=== PATIENT | female | born 1945 | race Caucasian/White ===

== ENCOUNTER 2021-11-28 07:17 | Day surgery (SDC) | payer OTHER ==
[2021-11-21 09:42] VITALS: BMI 32.1
[2021-11-28] MEDS ORDERED: TRANEXAMIC ACID 1000 MG/10 ML VIAL IVPUSH ONE (07:32)
[2021-11-28] MEDS ORDERED: CELECOXIB 200 MG CAPSULE PO ONE (07:32)
[2021-11-28] MEDS ORDERED: CEFAZOLIN 2 GM in DEXTROSE 5%-WATER - 50 ML IVPB ONE (07:32)
[2021-11-28] MEDS ORDERED: ceFAZolin SODIUM 1 GM VIAL ONE ×3 (07:54→23:57)
[2021-11-28] MEDS ORDERED: VANCOMYCIN 1,000 MG VIAL (RESTRICTED TO ID ONLY) ONE (07:54)
[2021-11-28] MEDS ORDERED: BUPIVACAINE LIPOSOME/PF (EXPAREL) 266 MG/20 ML VIAL ONE (09:00)
[2021-11-28] MEDS ORDERED: MIDAZOLAM HCL 2 MG/2 ML SINGLE DOSE VIAL ONE (09:01)
[2021-11-28] MEDS ORDERED: BUPIVACAINE HCL/PF 0.5% (5MG/ML) 10 ML VIAL ONE (09:01)
[2021-11-28] MEDS ORDERED: PROPOFOL 20 ML ONE (09:09)
[2021-11-28] MEDS ORDERED: SUCCINYLCHOLINE CHLORIDE 200 MG/10 ML SYRINGE ONE (09:10)
[2021-11-28] MEDS ORDERED: MAG HYDROX/AL HYDROX/SIMETH 30 ML UNIT-DOSE CUP PO PRN (09:48)
[2021-11-28] MEDS ORDERED: ONDANSETRON 4 MG/2 ML VIAL IVPUSH PRN ×2 (09:48→12:09)
[2021-11-28] MEDS ORDERED: LACTATED RINGERS SOLUTION 1,000 ML IV SCH (10:00)
[2021-11-28] MEDS ORDERED: ACETAMINOPHEN 1000 MG/100 ML BAG IVPB ONE (12:10)
[2021-11-28] MEDS: oxyCODONE HCL 5 MG TABLET PO PRN ×3 (16:07→22:33)
[2021-11-28] MEDS ORDERED: DEXTROSE 5%-WATER - 50 ML IVPB ONE ×2 (17:13→23:57)
[2021-11-28] MEDS: ACETAMINOPHEN 500 MG TABLET (FP) PO SCH ×2 (17:20→23:54)
[2021-11-28] MEDS: CEFAZOLIN 2 GM in DEXTROSE 5%-WATER - 50 ML IVPB SCH (17:21)
[2021-11-28] MEDS: LOSARTAN POTASSIUM 25 MG TABLET PO SCH (17:57)
[2021-11-28] MEDS ORDERED: KETOROLAC TROMETHAMINE 30 MG/1 ML VIAL IVPUSH ONE (18:54)
[2021-11-28] MEDS: PANTOPRAZOLE 40 MG TABLET PO SCH (21:01)
[2021-11-28] MEDS: LACTATED RINGERS SOLUTION 1,000 ML IV SCH (21:01)
[2021-11-28] MEDS: SENNOSIDES/DOCUSATE COMBO (SENNA PLUS) TABLET (UD) PO SCH ×2 (21:01→22:33)
[2021-11-28] MEDS: MULTIVITAMINS (DAILY MVI) TABLET (FP) PO SCH (21:01)
[2021-11-28] MEDS: ATORVASTATIN CA 40 MG TABLET (FP) PO SCH (22:33)
[2021-11-29] MEDS: CEFAZOLIN 2 GM in DEXTROSE 5%-WATER - 50 ML IVPB SCH (01:54)
[2021-11-29] MEDS: ACETAMINOPHEN 500 MG TABLET (FP) PO SCH ×4 (06:07→20:33)
[2021-11-29 07:33] LABS: HEMATOCRIT 36.6 % (32.4-45.2); HEMOGLOBIN 12.5 G/dL (10.7-15.3); MCH 30.3 pg (25.7-33.7); MCHC 34.2 g/dl (32.0-36.0); MEAN CELL VOLUME 88.5 fl (80-96); MEAN PLT VOLUME 10.4 fl (7.5-11.1); PLATELET COUNT 145.6 10^3/uL (134-434); RBC 4.13 10^6/uL (3.60-5.2); RDW 14.2 % (11.6-15.6); WHITE BLOOD COUNT 7.6 10^3/uL (4.0-10.8)
[2021-11-29] MEDS: LOSARTAN POTASSIUM 25 MG TABLET PO SCH (10:46)
[2021-11-29] MEDS: PANTOPRAZOLE 40 MG TABLET PO SCH (10:47)
[2021-11-29] MEDS: ASPIRIN 325 MG TABLET PO SCH (10:47)
[2021-11-29] MEDS: MULTIVITAMINS (DAILY MVI) TABLET (FP) PO SCH (10:47)
[2021-11-29] MEDS: SENNOSIDES/DOCUSATE COMBO (SENNA PLUS) TABLET (UD) PO SCH ×2 (10:51→21:05)
[2021-11-29] MEDS: oxyCODONE HCL 5 MG TABLET PO PRN ×2 (13:24→17:51)
[2021-11-29] MEDS: LACTATED RINGERS SOLUTION 1,000 ML IV SCH (18:52)
[2021-11-29] MEDS: ATORVASTATIN CA 40 MG TABLET (FP) PO SCH (21:04)
[2021-11-30] MEDS: ACETAMINOPHEN 500 MG TABLET (FP) PO SCH ×2 (01:57→06:32)
[2021-11-30] MEDS: oxyCODONE HCL 5 MG TABLET PO PRN (06:32)
[2021-11-30 08:27] LABS: HEMATOCRIT 33.1 % (32.4-45.2); HEMOGLOBIN 11.4 G/dL (10.7-15.3); MCH 30.8 pg (25.7-33.7); MCHC 34.6 g/dl (32.0-36.0); MEAN CELL VOLUME 89.1 fl (80-96); PLATELET COUNT 143.2 10^3/uL (134-434); RBC 3.72 10^6/uL (3.60-5.2); RDW 14.7 % (11.6-15.6)
[2021-11-30] MEDS: SENNOSIDES/DOCUSATE COMBO (SENNA PLUS) TABLET (UD) PO SCH (09:07)
[2021-11-30] MEDS: PANTOPRAZOLE 40 MG TABLET PO SCH (09:07)
[2021-11-30] MEDS: ASPIRIN 325 MG TABLET PO SCH (09:07)
[2021-11-30] MEDS: MULTIVITAMINS (DAILY MVI) TABLET (FP) PO SCH (09:07)
[2021-11-30] MEDS: LOSARTAN POTASSIUM 25 MG TABLET PO SCH (09:07)
[2021-11-30 13:53] VITALS: BP 120/50; PULSE 66; TEMP 98.4
== END 2021-11-30 15:57 | disposition home health service (06) ==
LOC: FASUSAT 07:17 → EDSTATUS 08:00 → FM/S 13:11 → FASUSAT 11-30 15:57
PROVIDERS: ATTEND Orthopaedic Surgery
PROC: 8E0YXBZ Computer Assisted Procedure of Lower Extremity (ICD-10-PCS; 2021-11-28)
PROC: 8E0Y0CZ Robotic Assisted Procedure of Lower Extremity, Open Approach (ICD-10-PCS; 2021-11-28)
PROC: 0SRC0J9 Replacement of Right Knee Joint with Synthetic Substitute, Cemented, Open Approach (ICD-10-PCS; principal; 2021-11-28 10:20)
DX: M17.11 Unilateral primary osteoarthritis, right knee (principal); I10 Essential (primary) hypertension; E78.5 Hyperlipidemia, unspecified
CPT/HCPCS: 20985; 27447; C1776; S2900; 36415; 73560-TC-RT-FY; 85027; 94760; 97010-GP; 97116-GP; 97161-GP

== ENCOUNTER 2022-02-20 10:38 | Day surgery (SDC) | payer OTHER ==
[2022-02-16 17:32] VITALS: BMI 30.6
[2022-02-20] MEDS ORDERED: LIDOCAINE HCL/PF 2% SDV 5ML VIAL ONE (11:35)
[2022-02-20] MEDS ORDERED: MIDAZOLAM HCL 2 MG/2 ML SINGLE DOSE VIAL ONE (11:35)
[2022-02-20] MEDS ORDERED: PROPOFOL 20 ML ONE (11:35)
[2022-02-20] MEDS ORDERED: ONDANSETRON 4 MG/2 ML VIAL IVPUSH PRN (12:12)
[2022-02-20] MEDS ORDERED: oxyCODONE HCL 5 MG TABLET PO PRN (12:12)
[2022-02-20] MEDS ORDERED: FENTANYL CITRATE/PF 50 MCG/ML VIAL ONE (12:27)
[2022-02-20] MEDS ORDERED: oxyCODONE HCL 5 MG TABLET ONE (13:52)
[2022-02-20 16:06] VITALS: RESP 16
[2022-02-20 16:14] VITALS: BP 126/58; PULSE 55; TEMP 97.6
== END 2022-02-20 15:10 | disposition home or self-care (01) ==
LOC: FASU 10:38
PROVIDERS: ATTEND Orthopaedic Surgery
PROC: 0SSCXZZ Reposition Right Knee Joint, External Approach (ICD-10-PCS; principal; 2022-02-20 11:44)
DX: M25.661 Stiffness of right knee, not elsewhere classified (principal); Z96.651 Presence of right artificial knee joint
CPT/HCPCS: 94760